=== PATIENT | female | born 1980 | race Two or more races ===

== ENCOUNTER → 2023-12-04 | Emergency (ER) | payer OTHER ==
[~2023-12-04] VITALS: Ht 162.6 cm; Wt 62.6 kg
[~2023-12-04] MED LIST: TAMOXIFEN CITRA20 MG
== END | disposition left against medical advice (07) ==
LOC: ER 22:08
DX: Z53.21 Procedure and treatment not carried out due to patient leaving prior to being seen by health care provider (principal)

== ENCOUNTER 2025-04-09 06:20 | Day surgery (SDC) | payer OTHER ==
[2025-04-09] MEDS ORDERED: CEFAZOLIN SODIUM 1,000 MG VIAL ONE (07:56)
[2025-04-09] MEDS ORDERED: POVIDONE-IODINE 118 ML BOTT TOP ONE (09:36)
== END 2025-04-09 17:00 | disposition home or self-care (01) ==
LOC: CIR.AMB 06:20
PROVIDERS: ATTEND Obstetrics & Gynecology
DX: N84.0 Polyp of corpus uteri (principal); Z88.5 Allergy status to narcotic agent

== ENCOUNTER 2025-04-11 20:04 | Emergency (ER) | payer OTHER ==
[~2025-04-11] VITALS: Ht 162.6 cm; Wt 68.0 kg
[2025-04-12] MEDS ORDERED: 0.9 % SODIUM CHLORIDE 1,000 ML IV STA (00:23)
[2025-04-12] MEDS ORDERED: KETOROLAC TROMETHAMINE 30 MG VIAL IV STA (00:24)
[2025-04-12] MEDS ORDERED: DEXAMETHASONE SODIUM PHOSPHATE 4 MG/ML VIAL IV STA (00:24)
[2025-04-12] MEDS ORDERED: ACETAMINOPHEN 500 MG GEL..CAP PO STA (00:25)
[2025-04-12 01:21] LABS: BASO % 0.2 % (0.1-1.2); EOS % 1.2 % (0.7-7.0); HEMATOCRIT 36.3 % (34.1-44.9); HEMOGLOBIN 12.6 g/dL (11.2-15.7); LYMPH # 2.86 (1.18-3.74); LYMPH % 33.2 % (19.3-53.1); MEAN CORPUSCULAR HEMOGLOBIN 30.2 pg (25.6-32.2); MONO # 0.56 (0.24-0.82); MONO % 6.5 % (4.7-12.5); NEUT # 5.07 (1.56-6.13); NEUT % 58.8 % (34.0-71.1); PLATELET COUNT 209 K/uL (163-369); RED BLOOD COUNT 4.17 M/uL (3.93-5.22); RED CELL DISTRIBUTION WIDTH 12.4 % (11.6-14.4)
[2025-04-12 01:28] LABS: ALBUMIN 3.4 gm/dL (3.4-5.0); BILIRUBIN TOTAL 0.38 mg/dL (0.3-1.2); CALCIUM 8.5 mg/dL (8.5-10.1); CREATININE SERUM 0.76 mg/dL (0.55-1.02); GFR 83.06; GLOBULINA 3.7 G/DL (2.4-3.5); POTASSIUM 3.84 mEq/L (3.5-5.1); TOTAL PROTEIN 7.1 gm/dL (6.4-8.2)
[2025-04-12 03:52] LABS: INR 1.02; PARTIAL THROMBOPLASTIN TIME 22.8 SECONDS (22.0-34.0); PROTHROMBIN TIME 11.1 SECONDS (9.0-11.5)
== END 2025-04-12 05:24 | disposition home or self-care (01) ==
LOC: ER 20:10
DX: G44.40 Drug-induced headache, not elsewhere classified, not intractable (principal); T41.3X5A Adverse effect of local anesthetics, initial encounter; Y92.89 Other specified places as the place of occurrence of the external cause; Z88.8 Allergy status to other drugs, medicaments and biological substances